=== PATIENT | female | born 1995 | race Caucasian/White ===

== ENCOUNTER 2017-03-01 07:18 | Emergency (ER) | payer MEDICAID ==
[~2017-03-01] VITALS: Ht 162.6 cm; Wt 73.7 kg
[~2017-03-01 07:18] MED LIST: ACET325T14 PO; ALBUTEROL INH INH; CALC0.5C2 PO; CALC1TAB86 PO; CALC200T3 PO; DOCU-131 PO; HYDR-3237 PO; IBUP-1484 PO; LEVO112T2 PO; OXYC-302 PO
[2017-03-01 07:34] VITALS: BP 115/75
[2017-03-01] MEDS ORDERED: FAMOTIDINE 20 MG TABLET ONE (07:58)
[2017-03-01] MEDS ORDERED: FAMOTIDINE 20 MG TABLET PO ONE (08:00)
== END 2017-03-01 09:30 | disposition home or self-care (01) ==
LOC: ED 07:52
DX: L50.0 Allergic urticaria (principal)
CPT/HCPCS: 99284; J7512; Q0177